=== PATIENT | female | born 1965 | race Caucasian/White ===

== ENCOUNTER 2019-01-25 19:27 | Emergency (ER) | payer OTHER ==
[~2019-01-25] VITALS: Ht 167.6 cm; Wt 73.9 kg
[2019-01-25 19:30] VITALS: Ht 167.6 cm; Wt 73.9 kg
[2019-01-25 20:10] VITALS: BP 126/88
== END 2019-01-25 20:10 | disposition home or self-care (01) ==
LOC: ED 19:27
DX: N39.0 Urinary tract infection, site not specified (principal); Z86.69 Personal history of other diseases of the nervous system and sense organs